=== PATIENT | male | born 1960 | race Caucasian/White ===

== ENCOUNTER 2018-01-14 16:08 | Emergency (ER) | payer BC ==
[~2018-01-14] VITALS: Ht 182.9 cm; Wt 136.0 kg
[2018-01-14] MEDS ORDERED: PERCOCET 10/31 COMBO PO (17:44)
[2018-01-14 18:25] VITALS: BP 154/77
== END 2018-01-14 18:25 | disposition home or self-care (01) | DRG 185 ==
LOC: ED 16:08
DX: S22.41XA Multiple fractures of ribs, right side, initial encounter for closed fracture (principal); S30.810A Abrasion of lower back and pelvis, initial encounter; S40.811A Abrasion of right upper arm, initial encounter; W11.XXXA Fall on and from ladder, initial encounter; Y92.009 Unspecified place in unspecified non-institutional (private) residence as the place of occurrence of the external cause